=== PATIENT | female | born 1975 | race Hispanic/Latino ===

== ENCOUNTER 2017-08-17 21:19 | Emergency (ER) | payer OTHER, SELFPAY ==
[2017-08-17] MEDS ORDERED: predniSONE 20 MG TAB ONE (21:57)
[2017-08-17] MEDS ORDERED: NA CHLORIDE 0.9% 1,000 ML ONE (21:58)
[2017-08-17] MEDS ORDERED: DIPHENHYDRAMINE 50 MG/ML VIAL ONE (21:59)
[2017-08-17] MEDS ORDERED: FAMOTIDINE 20 MG/2 ML VIAL IV ONE (21:59)
[2017-08-17] MEDS ORDERED: METHYLPREDNISOLONE 125 MG INJ ONE (21:59)
[2017-08-17 22:16] LABS: Absolute Lymphocytes (CBC) 2.6 K/uL (0.7-4.9); Absolute Monocytes 0.6 K/uL (0.1-1.3); Absolute Neutrophil 6.9 K/uL (1.8-8.0); Basophils % 0.7 % (0-1.3); Eosinophils % 1.7 % (0-4.4); Hematocrit 36.1 % (36.0-45.0); Lymphocytes % 25.1 % (15.3-44.8); MCH 26.7 pg (27.0-35.0); MCV 82.5 fL (80-100); MPV 8.1 fL (7.6-11.3); RBC Red Blood Cell Count 4.37 M/uL (3.86-4.86)
[2017-08-17 22:20] LABS: Protime INR 0.97
[2017-08-17 22:25] LABS: Bicarbonate 26 mEq/L (21-31); Glucose Level 108 mg/dL (65-120); Lipase 19 U/L (22-51); Potassium 3.6 mEq/L (3.6-5.0); Sodium Level 138 mEq/L (135-145)
[2017-08-17 22:31] LABS: ALT/SGPT 38 IU/L (10-60); AST/SGOT 39 IU/L (10-42); Albumin 3.2 g/dL (3.2-5.5); Alkaline Phosphatase 88 IU/L (42-121); BUN Blood Urea Nitrogen 16 mg/dL (6-20); Bilirubin Direct < 0.1 mg/dL (0-0.2); Bilirubin Total 0.5 mg/dL (0.3-1.2); Creatine Phosphokinase 149 IU/L (22-269); Magnesium 1.7 mg/dL (1.8-2.5); Protein, Total 7.1 g/dL (6.0-8.3)
[2017-08-17 22:34] LABS: CKMB Creatine Kinase MB 3.3 ng/ml (0.3-4.0)
[2017-08-17] MEDS ORDERED: MAGNESIUM SULFATE 1 gm IVPB 1 GM/100 ML BAG IV ONE (23:00)
--- NOTE | 2017-08-17 23:01 | EDPHYS ---
Physician Documentation [facility] Name: Mariely Stratton Age: 42 yrs Sex: Female : 1975 Arrival Date: 08/17/2017 Time: 21:25 Bed 6 Private MD: ED Physician Ronen Simpson HPI: 08/17 21:50 This 42 yrs old Female presents to ER via Ambulatory with complaints of Rash, suresh Breathing Difficulty. 21:50 The patient's rash thought to be caused by an unknown cause. The rash is located on the suresh body diffusely. The rash can be described as erythematous, urticarial. Onset: The symptoms/episode began/occurred 1 day(s) ago. Associated signs and symptoms: Pertinent positives: None. Severity of symptoms: At their worst the symptoms were moderate in the emergency department the symptoms are unchanged. Treatment given at home: none. The patient has not experienced similar symptoms in the past. OFFICE REP: 21:30 LMP N/A - Recent aj Historical: - Allergies: 21:30 No Known Allergies; aj - Home Meds: 21:30 None [Active]; aj - PMHx: 21:30 None; aj - PSHx: 21:30 None; aj - Immunization history:: Adult Immunizations up to date. - Social history:: Smoking status: Patient/guardian denies using tobacco. - Family history:: not pertinent. ROS: 21:50 Constitutional: Negative for fever, chills, and weight loss, Eyes: Negative for injury, suresh pain, redness, and discharge, ENT: Negative for injury, pain, and discharge, Neck: Negative for injury, pain, and swelling, Cardiovascular: Negative for chest pain, palpitations, and edema, Respiratory: Negative for shortness of breath, cough, wheezing, and pleuritic chest pain, Abdomen/GI: Negative for abdominal pain, nausea, vomiting, diarrhea, and constipation, Back: Negative for injury and pain, : Negative for injury, bleeding, discharge, and swelling, MS/Extremity: Negative for injury and deformity, Neuro: Negative for headache, weakness, numbness, tingling, and seizure, Psych: Negative for depression, anxiety, suicide ideation, homicidal ideation, and hallucinations, Allergy/Immunology: Negative for hives, rash, and allergies, Endocrine: Negative for neck swelling, polydipsia, polyuria, polyphagia, and marked weight changes, Hematologic/Lymphatic: Negative for swollen nodes, abnormal bleeding, and unusual bruising. 21:50 Skin: Positive for rash, diffusely. Exam: 21:50 Constitutional: This is a well developed, well nourished patient who is awake, alert, suresh and in no acute distress. Head/Face: Normocephalic, atraumatic. Eyes: Pupils equal round and reactive to light, extra-ocular motions intact. Lids and lashes normal. Conjunctiva and sclera are non-icteric and not injected. Cornea within normal limits. Periorbital areas with no swelling, redness, or edema. ENT: Nares patent. No nasal discharge, no septal abnormalities noted. Tympanic membranes are normal and external auditory canals are clear. Oropharynx with no redness, swelling, or masses, exudates, or evidence of obstruction, uvula midline. Mucous membranes moist. Neck: Trachea midline, no thyromegaly or masses palpated, and no cervical lymphadenopathy. Supple, full range of motion without nuchal rigidity, or vertebral point tenderness. No Meningismus. Chest/axilla: Normal chest wall appearance and motion. Nontender with no deformity. No lesions are appreciated. Cardiovascular: Regular rate and rhythm with a normal S1 and S2. No gallops, murmurs, or rubs. Normal PMI, no JVD. No pulse deficits. Respiratory: Lungs have equal breath sounds bilaterally, clear to auscultation and percussion. No rales, rhonchi or wheezes noted. No increased work of breathing, no retractions or nasal flaring. Abdomen/GI: Soft, non-tender, with normal bowel sounds. No distension or tympany. No guarding or rebound. No evidence of tenderness throughout. Back: No spinal tenderness. No costovertebral tenderness. Full range of motion. MS/ Extremity: Pulses equal, no cyanosis. Neurovascular intact. Full, normal range of motion. Neuro: Awake and alert, GCS 15, oriented to person, place, time, and situation. Cranial nerves II-XII grossly intact. Motor strength 5/5 in all extremities. Sensory grossly intact. Cerebellar exam normal. Normal gait. Psych: Awake, alert, with orientation to person, place and time. Behavior, mood, and affect are within normal limits. 21:50 Skin: Appearance: Color: normal in color, Temperature: normal temperature, Moisture: normal moisture, petechiae, not noted, ecchymosis, not noted, urticaria. 23:01 Musculoskeletal/extremity: Extremities: all appear grossly normal, with no appreciated suresh pain with palpation, ROM: full active range of motion, full passive range of motion, Circulation is intact in all extremities. Sensation intact. Compartment Syndrome exam of affected extremity: is normal. DVT Exam: No signs of deep vein thrombosis. no pain, no swelling, no tenderness, negative Homans' sign noted on exam, no appreciated bluish discoloration, no erythema, no increased warmth. 23:04 Chest/axilla: Inspection: normal, Palpation: is normal, no acute changes, Axilla: are suresh normal, no acute changes. 23:04 Cardiovascular: Rate: normal, Rhythm: regular, Pulses: Pulses are 4+ in bilateral radial, brachial, femoral, popliteal, posterior tibial and and dorsalis pedis arteries.. Heart sounds: normal, Edema: is not appreciated, JVD: is not appreciated. Vital Signs: 21:30 BP 138 / 83; Pulse 79; Resp 22; Temp 98.7; Pulse Ox 97% on R/A; Weight 122.47 kg; aj Height 5 ft. 3 in. (160.02 cm); Pain 0/10; 22:58 BP 142 / 80; Pulse 67; Resp 16; Pulse Ox 95% on R/A; Pain 0/10; tl1 08/18 00:11 BP 131 / 79; Pulse 65; Resp 16; Temp 98.6; Pulse Ox 96% on R/A; Pain 0/10; tl1 08/17 21:30 Body Mass Index 47.83 (122.47 kg, 160.02 cm) MDM: 08/17 21:46 Patient medically screened. [facility] 21:52 Data reviewed: vital signs, nurses notes, lab test result(s), EKG, radiologic studies, [facility] plain films. 08/17 21:50 Order name: Basic Metabolic Panel; Complete Time: 22:57 [facility] 08/17 21:50 Order name: BNP; Complete Time: 22:57 [facility] 08/17 21:50 Order name: CBC with Diff; Complete Time: 22:57 [facility] 08/17 21:50 Order name: Ckmb; Complete Time: 22:57 [facility] 08/17 21:50 Order name: CPK; Complete Time: 22:57 [facility] 08/17 21:50 Order name: LFT's; Complete Time: 22:57 [facility] 08/17 21:50 Order name: Magnesium; Complete Time: 22:57 [facility] 08/17 21:50 Order name: PT-INR; Complete Time: 22:57 [facility] 08/17 21:50 Order name: Ptt, Activated; Complete Time: 22:57 [facility] 08/17 21:50 Order name: Troponin (emerg Dept Use Only); Complete Time: 22:57 [facility] 08/17 21:50 Order name: Lipase; Complete Time: 22:57 [facility] 08/17 21:53 Order name: Urine Culture [facility] 08/17 23:42 Order name: Urine Dipstick--Ancillary (enter results) [facility] 08/17 23:42 Order name: Urine --Ancillary (enter results) [facility] 08/17 21:50 Order name: XRAY Chest (1 view) [facility] 08/17 21:50 Order name: EKG; Complete Time: 21:51 [facility] 08/17 21:50 Order name: Cardiac monitoring; Complete Time: 21:55 [facility] 08/17 21:50 Order name: EKG - Nurse/Tech; Complete Time: 22:18 [facility] 08/17 21:50 Order name: IV Saline Lock; Complete Time: 21:55 [facility] 08/17 21:50 Order name: Labs collected and sent; Complete Time: 21:55 [facility] 08/17 21:50 Order name: O2 Per Protocol; Complete Time: 21:56 [facility] 08/17 21:50 Order name: O2 Sat Monitoring; Complete Time: 21:56 [facility] 08/17 21:50 Order name: Urine Dipstick-Ancillary (obtain specimen); Complete Time: 23:40 [facility] Administered Medications: 22:09 Drug: SOLU-Medrol 125 mg Route: IVP; Infused Over: 2 mins; Site: right hand; 08/18 00:06 Follow up: Response: No adverse reaction; Marked relief of symptoms 08/17 22:09 Drug: predniSONE 60 mg Route: PO; 08/18 00:07 Follow up: Response: No adverse reaction; Marked relief of symptoms 08/17 22:10 Drug: NS 0.9% 1000 ml Route: IV; Rate: 125 ml/hr; Site: right hand; 1 08/18 00:06 Follow up: IV Status: Completed infusion tl1 08/17 22:10 Drug: Benadryl 50 mg Route: IVP; Infused Over: 3 mins; Site: right hand; tl1 08/18 00:06 Follow up: Response: No adverse reaction; Marked relief of symptoms tl1 08/17 22:10 Drug: Pepcid 20 mg Route: IVP; Infused Over: 2 mins; Site: right hand; tl1 08/18 00:06 Follow up: Response: No adverse reaction; Marked relief of symptoms 1 08/17 23:03 Drug: Magnesium Sulfate 1 grams Route: IVPB; Infused Over: 1 hrs; Site: right tl1 antecubital; 08/18 00:05 Follow up: IV Status: Completed infusion 1 Disposition: 08/17/17 23:00 Discharged to Home. Impression: Rash and other nonspecific skin eruption, Urticaria, Hypomagnesemia, Dyspnea. - Condition is Stable. - Discharge Instructions: Hives, Hypomagnesemia, Rash, Shortness of Breath, Shortness of Breath, Eeiq-[id number], Rash, Wvpn-et-[id number], Hives, Roef-ef-Grjv. - Prescriptions for Benadryl 25 mg Oral Capsule - take 1 capsule by ORAL route every 6 hours As needed; 30 tablet. Pepcid 20 mg Oral Tablet - take 1 tablet by ORAL route every 12 hours for 5 days; 20 tablet. Prednisone 20 mg Oral Tablet - take 2 tablet by ORAL route once daily for 5 days; 10 tablet. - Medication Reconciliation Form, Thank You Letter, Antibiotic Education, Prescription Opioid Use form. - Follow up: Private Physician; When: 2 - 3 days; Reason: Recheck today's complaints, Continuance of care, Re-evaluation by your physician. - Problem is new. - Symptoms have improved. Signatures: Dispatcher [employer] Stephie Manning RN RN aj Anderson, Corey, MD MD cha Lasagna, Tonya, RN RN tl1
--- NOTE | 2017-08-17 23:01 | ER ---
Nurse's Notes [facility] Name: Mariely Stratton Age: 42 yrs Sex: Female : 1975 Arrival Date: 08/17/2017 Time: 21:25 Bed 6 Private MD: Diagnosis: Rash and other nonspecific skin eruption;Urticaria;Hypomagnesemia;Dyspnea Presentation: 08/17 21:27 Presenting complaint: Patient states: Itchy rash all over that started yesterday. aj Patient reports taking Benadryl 25 mg at 1600 today. Patient reports "bumps" on tongue and throat. Recent 10 days ago. Transition of care: patient was not received from another setting of care. Onset of symptoms was August 16, 2017. Initial Sepsis Screen: Does the patient meet any 2 criteria? No. Patient's initial sepsis screen is negative. Does the patient have a suspected source of infection? No. Patient's initial sepsis screen is negative. Care prior to arrival: None. 21:27 Method Of Arrival: Ambulatory 21:27 Acuity: BETHANY 3 aj Triage Assessment: 21:30 General: Appears in no apparent distress. uncomfortable, Behavior is calm, cooperative, aj appropriate for age. Pain: Denies pain. EENT: Reports pain when swallowing. Neuro: Level of Consciousness is awake, alert, obeys commands, Oriented to person, place, time, situation. Respiratory: Reports shortness of breath Airway is patent Respiratory effort is even, unlabored, Respiratory pattern is regular, symmetrical, Onset: The symptoms/episode began/occurred gradually, the patient has mild shortness of breath. Derm: Skin is intact, is healthy with good turgor, Skin is pink, warm \\T\\ dry. normal, Rash noted that is itchy, red, on face, chest, abdomen, right arm, left arm, right leg and left leg. 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 - Social history:: Smoking status: Patient/guardian denies using tobacco. - Family history:: not pertinent. Screenin/21 00:08 Abuse screen: Denies threats or abuse. Denies injuries from another. Nutritional tl1 screening: No deficits noted. Tuberculosis screening: No symptoms or risk factors identified. Fall Risk IV access (20 points). Assessment: 08/17 21:44 General: Appears in no apparent distress. Behavior is calm, cooperative, appropriate tl1 for age. Pain: Denies pain. Neuro: Level of Consciousness is awake, alert, Oriented to person, place, time, situation. 21:45 Cardiovascular: Denies chest pain, Rhythm is regular. Respiratory: Airway is patent tl1 Trachea midline Respiratory effort is even, unlabored, Breath sounds are clear bilaterally. GI: Abdomen is non-distended, Bowel sounds present X 4 quads. Abd is soft and non tender X 4 quads. : Reports vaginal bleeding that is moderate flow, Patient gave approx 10 days [employer]. EENT: Reports bumps on tongue and throat. Derm: Rash noted that is itchy, red, raised, urticaria. 23:04 Reassessment: Patient and/or family updated on plan of care and expected duration. Pain tl1 level reassessed. Patient is alert, oriented x 3, equal unlabored respirations, skin warm/dry/pink. Patient denies pain at this time. Patient states feeling better. Patient states symptoms have improved. 08/18 00:07 Reassessment: Patient and/or family updated on plan of care and expected duration. Pain tl1 level reassessed. Patient is alert, oriented x 3, equal unlabored respirations, skin warm/dry/pink. Patient denies pain at this time. Patient states feeling better. Patient states symptoms have improved. Respiratory: Airway is patent Trachea midline Respiratory effort is even, unlabored. Vital Signs: 08/17 21:30 BP 138 / 83; Pulse 79; Resp 22; Temp 98.7; Pulse Ox 97% on R/A; Weight 122.47 kg; aj Height 5 ft. 3 in. (160.02 cm); Pain 0/10; 22:58 BP 142 / 80; Pulse 67; Resp 16; Pulse Ox 95% on R/A; Pain 0/10; tl1 08/18 00:11 BP 131 / 79; Pulse 65; Resp 16; Temp 98.6; Pulse Ox 96% on R/A; Pain 0/10; tl1 08/17 21:30 Body Mass Index 47.83 (122.47 kg, 160.02 cm) aj ED Course: 08/17 21:25 Patient arrived in ED. al2 21:29 Triage completed. aj 21:30 Arm band placed on right wrist. Patient placed in an exam room. aj 21:30 Patient has correct armband on for positive identification. Bed in low position. Call tl1 light in reach. Side rails up X 1. 21:43 Inserted saline lock: 22 gauge in right hand, using aseptic technique. Blood collected. tl2 21:44 Nano Elizondo, GAMALIEL is Primary Nurse. tl1 21:45 Ronen Simpson MD is Attending Physician. suresh 22:15 X-ray completed. Portable x-ray completed in exam room. Patient tolerated procedure kp1 well. 22:17 XRAY Chest (1 view) In Process Unspecified. EDMS 22:27 EKG done, by ED staff, reviewed by Ronen Simpson MD. cb2 23:43 Urine collected: clean catch specimen, clear. cb2 08/18 00:09 No provider procedures requiring assistance completed. IV discontinued, intact, tl1 bleeding controlled, No redness/swelling at site. Pressure dressing applied. Administered Medications: 08/17 22:09 Drug: SOLU-Medrol 125 mg Route: IVP; Infused Over: 2 mins; Site: right hand; tl1 08/18 00:06 Follow up: Response: No adverse reaction; Marked relief of symptoms tl1 08/17 22:09 Drug: predniSONE 60 mg Route: PO; tl1 08/18 00:07 Follow up: Response: No adverse reaction; Marked relief of symptoms tl1 08/17 22:10 Drug: NS 0.9% 1000 ml Route: IV; Rate: 125 ml/hr; Site: right hand; tl1 08/18 00:06 Follow up: IV Status: Completed infusion tl1 08/17 22:10 Drug: Benadryl 50 mg Route: IVP; Infused Over: 3 mins; Site: right hand; tl1 08/18 00:06 Follow up: Response: No adverse reaction; Marked relief of symptoms tl1 08/17 22:10 Drug: Pepcid 20 mg Route: IVP; Infused Over: 2 mins; Site: right hand; tl1 08/18 00:06 Follow up: Response: No adverse reaction; Marked relief of symptoms tl1 08/17 23:03 Drug: Magnesium Sulfate 1 grams Route: IVPB; Infused Over: 1 hrs; Site: right tl1 antecubital; 08/18 00:05 Follow up: IV Status: Completed infusion tl1 Outcome: 08/17 23:00 Discharge ordered by . suresh 08/18 00:07 Discharged to home ambulatory, with family. tl1 Condition: good Discharge instructions given to patient, family, Instructed on discharge instructions, follow up and referral plans. medication usage, Demonstrated understanding of instructions, follow-up care, medications, Prescriptions given X 3. 00:12 Patient left the ED. tl1 Signatures: Dispatcher [employer] EDMS Stephie Reyes RN RN aj Anderson, Corey, MD MD cha Lasagna, Tonya, RN RN tl1 Sherine Tenorio RN RN tl2 Dwihgt Wang Kathy 1 Laurie Charles2
[2017-08-17 23:53] LABS: Urine Blood 3+ (NEG); Urine Glucose NEGATIVE (NEG); Urine Protein NEGATIVE (NEG); Urine pH 5.5 (5.0-7.0)
--- NOTE | 2017-08-18 07:15 | EKG ---
Test Date: 2017-08-17 Test Time: 22:22:50 Screening Technician: JOSELITO MEASUREMENT RESULTS: Intervals: Rate: 69 MI: 148 QRSD: 74 QT: 418 QTc: 447 [place]: P: 61 MI: 148 QRS: 22 T: 48 INTERPRETIVE STATEMENTS: Normal sinus rhythm Normal ECG No previous ECG available for comparison Electronically Signed On 08-18-17 07:14:51 CDT by Venkatesh Ferreira
--- NOTE | 2017-08-18 08:30 | RAD REPORT ---
EXAM DESCRIPTION: Kevin Single View08/17/2017 10:18 pm CLINICAL HISTORY: Shortness of breath COMPARISON: none FINDINGS: The lungs appear grossly clear. The heart is normal size IMPRESSION: No acute abnormalities displayed
== END 2017-08-18 00:12 | disposition home or self-care (01) ==
LOC: ER 21:19
DX: L50.9 Urticaria, unspecified (principal); R06.00 Dyspnea, unspecified; E83.42 Hypomagnesemia
CPT/HCPCS: 36415; 71045; 80048; 80076; 81003; 81025; 82550; 82553; 83690; 83735; 83880; 84484; 85025; 85610; 85730; 87086; 87088; 93005; 96361; 96365; 96375; 99284; J2930; J3475; J7030; J7512

== ENCOUNTER 2017-08-22 08:57 | Emergency (ER) | payer OTHER, SELFPAY ==
[2017-08-22] MEDS ORDERED: DIPHENHYDRAMINE 25 MG TAB/CAP ONE (09:29)
[2017-08-22] MEDS ORDERED: LIDOCAINE 1% MPF 5 ML VIAL ONE (09:29)
--- NOTE | 2017-08-22 10:32 | ER ---
Nurse's Notes [facility] Name: Mariely Stratton Age: 42 yrs Sex: Female : 1975 Arrival Date: 08/22/2017 Time: 08:59 Bed 14 Private MD: Diagnosis: Urticaria;Cutaneous abscess of abdominal wall Presentation: 08/22 09:19 Presenting complaint: Patient states: Continued rash from Sunday, meds haven't jl7 helped. Now there's an abscess to left upper abdomen. Transition of care: patient was not received from another setting of care. Onset of symptoms was August 18, 2017. Initial Sepsis Screen: Does the patient meet any 2 criteria? No. Patient's initial sepsis screen is negative. Does the patient have a suspected source of infection? No. Patient's initial sepsis screen is negative. Care prior to arrival: None. 09:19 Method Of Arrival: Ambulatory jl7 09:19 Acuity: BETHANY 4 jl7 Historical: - Allergies: 09:23 No Known Allergies; jl7 - Home Meds: 09:23 None [Active]; jl7 - PMHx: 09:23 None; jl7 - PSHx: 09:23 None; jl7 - Immunization history:: Adult Immunizations unknown. - Social history:: Smoking status: unknown. Screenin:30 Abuse screen: Denies threats or abuse. Denies injuries from another. Nutritional jl7 screening: No deficits noted. Tuberculosis screening: No symptoms or risk factors identified. Fall Risk None identified. Assessment: 09:30 General: Appears in no apparent distress. Pain: Complains of pain in abdomen. Neuro: jl7 Level of Consciousness is awake, alert, obeys commands. Cardiovascular: Patient's skin is warm and dry. Respiratory: Airway is patent Respiratory effort is even, unlabored, Respiratory pattern is regular, symmetrical. Derm: Rash noted that is urticaria, on abdomen, right leg and left leg. Vital Signs: 09:23 BP 168 / 85; Pulse 72; Resp 16; Temp 98.3; Pulse Ox 97% ; Weight 102.06 kg; Height 5 jl7 ft. 3 in. (160.02 cm); 10:00 BP 164 / 76; Pulse 58; Resp 16; Pulse Ox 95% ; jl7 10:45 BP 167 / 84; Pulse 65; Resp 16 S; Pulse Ox 95% on R/A; jl7 09:23 Body Mass Index 39.86 (102.06 kg, 160.02 cm) jl7 ED Course: 08:59 Patient arrived in ED. as 09:11 Joi Ellis FNP-C [facility]. kb 09:11 Ricki Rincon MD is Attending Physician. kb 09:18 Cathy Archuleta, GAMALIEL is Primary Nurse. jl7 09:21 Triage completed. jl7 09:25 Arm band placed on right wrist. jl7 09:30 Patient has correct armband on for positive identification. Bed in low position. Call jl7 light in reach. Side rails up X 1. Pulse ox on. NIBP on. 11:00 No provider procedures requiring assistance completed. Patient did not have IV access jl7 during this emergency room visit. Administered Medications: 09:31 Drug: Benadryl 50 mg Route: PO; jl7 10:15 Follow up: Response: No adverse reaction; Marked relief of symptoms jl7 10:00 Drug: Lidocaine (1 %) 1 vials {Note: administered by NP. Caleb} Volume: 5 ml; Route: jl7 Infiltration; 10:40 Follow up: Response: No adverse reaction jl7 10:40 Drug: Bactrim (160 mg-800 mg (DS) 1 tablet Route: PO; jl7 10:56 Follow up: Response: Medication administered at discharge. jl7 10:40 Drug: Ibuprofen 800 mg Route: PO; jl7 10:57 Follow up: Response: Medication administered at discharge. jl7 Outcome: 10:32 Discharge ordered by . kb 11:00 Discharged to home ambulatory. jl7 11:00 Condition: stable 11:00 Discharge instructions given to patient, family, Instructed on discharge instructions, follow up and referral plans. medication usage, Demonstrated understanding of instructions, follow-up care, medications, Prescriptions given X 1. 11:01 Patient left the ED. jl7 Signatures: Joi Ellis FNP-C FNP-Lis Garcia as Cathy Archuleta, RN RN jl7
--- NOTE | 2017-08-22 10:33 | EDPHYS ---
Physician Documentation [facility] Name: Mariely Stratton Age: 42 yrs Sex: Female : 1975 Arrival Date: 08/22/2017 Time: 08:59 Bed 14 Private MD: ED Physician Ricki Rincon HPI: 08/22 09:24 This 42 yrs old Female presents to ER via Ambulatory with complaints of Rash. kb 09:24 The patient's rash thought to be caused by an unknown cause. The rash is located on the kb body diffusely. The rash can be described as urticarial. Onset: The symptoms/episode began/occurred 5 day(s) ago. Associated signs and symptoms: Pertinent positives: itching. Severity of symptoms: At their worst the symptoms were moderate in the emergency department the symptoms are unchanged. The patient has not experienced similar symptoms in the past. The patient has been recently seen at the [facility] Emergency Department, last week, for similar complaints labs were performed, X-rays were performed. Pt was seen for rash a few days ago and started on prednisone and pepcid. States the rash subsides throughout the day, but comes back at night. Has not been taking benadryl. Also reports abscess to LLQ that drains when she pushes on it. . Historical: - Allergies: 09:23 No Known Allergies; jl7 - Home Meds: 09:23 None [Active]; jl7 - PMHx: 09:23 None; jl7 - PSHx: 09:23 None; jl7 - Immunization history:: Adult Immunizations unknown. - Social history:: Smoking status: unknown. ROS: 09:21 Constitutional: Negative for fever, chills, and weight loss, Cardiovascular: Negative kb for chest pain, palpitations, and edema, Respiratory: Negative for shortness of breath, cough, wheezing, and pleuritic chest pain, Abdomen/GI: Negative for abdominal pain, nausea, vomiting, diarrhea, and constipation, MS/Extremity: Negative for injury and deformity, Neuro: Negative for headache, weakness, numbness, tingling, and seizure. 09:21 Skin: Positive for rash, diffusely. 09:23 Skin: Positive for abscess, erythema, swelling, of the left lower quadrant. kb Exam: 09:23 Constitutional: This is a well developed, well nourished patient who is awake, alert, kb and in no acute distress. Head/Face: Normocephalic, atraumatic. Chest/axilla: Normal chest wall appearance and motion. Nontender with no deformity. No lesions are appreciated. Cardiovascular: Regular rate and rhythm with a normal S1 and S2. No gallops, murmurs, or rubs. Normal PMI, no JVD. No pulse deficits. Respiratory: Lungs have equal breath sounds bilaterally, clear to auscultation and percussion. No rales, rhonchi or wheezes noted. No increased work of breathing, no retractions or nasal flaring. Abdomen/GI: Soft, non-tender, with normal bowel sounds. No distension or tympany. No guarding or rebound. No evidence of tenderness throughout. MS/ Extremity: Pulses equal, no cyanosis. Neurovascular intact. Full, normal range of motion. Neuro: Awake and alert, GCS 15, oriented to person, place, time, and situation. Cranial nerves II-XII grossly intact. Motor strength 5/5 in all extremities. Sensory grossly intact. Cerebellar exam normal. Normal gait. 09:23 Skin: abscess, that is small, of the left lower quadrant, with drainage, with fluctuance, with induration, with surrounding cellulitis, that is mild, consistent with urticaria. Vital Signs: 09:23 BP 168 / 85; Pulse 72; Resp 16; Temp 98.3; Pulse Ox 97% ; Weight 102.06 kg; Height 5 jl7 ft. 3 in. (160.02 cm); 10:00 BP 164 / 76; Pulse 58; Resp 16; Pulse Ox 95% ; jl7 10:45 BP 167 / 84; Pulse 65; Resp 16 S; Pulse Ox 95% on R/A; jl7 09:23 Body Mass Index 39.86 (102.06 kg, 160.02 cm) 7 Procedures: 10:22 I \T\ D: Incision and drainage was performed for an abscess of the left left lower kb quadrant Prepped with alcohol, Anesthetized with 2 ml's 1% Lidocaine. Incised with #11 blade. Drained small amount serosanguinous fluid. Dressing: sterile 4x4 gauze, the patient tolerated the procedure well. MDM: 09:11 Patient medically screened. 09:21 Data reviewed: vital signs, nurses notes. Data interpreted: Pulse oximetry: on room air kb is 96 %. Interpretation: normal. 10:22 Counseling: I had a detailed discussion with the patient and/or guardian regarding: the kb historical points, exam findings, and any diagnostic results supporting the discharge/admit diagnosis, the need for outpatient follow up, an allergy/outcomes specialist, a family practitioner, a general surgeon, to return to the emergency department if symptoms worsen or persist or if there are any questions or concerns that arise at home. 08/22 09:19 Order name: I\T\D Setup; Complete Time: :31 kb Administered Medications: : Drug: Benadryl 50 mg Route: PO; jl7 10:15 Follow up: Response: No adverse reaction; Marked relief of symptoms jl7 10:00 Drug: Lidocaine (1 %) 1 vials {Note: administered by NP. Caleb} Volume: 5 ml; Route: jl7 Infiltration; 10:40 Follow up: Response: No adverse reaction jl7 10:40 Drug: Bactrim (160 mg-800 mg (DS) 1 tablet Route: PO; jl7 10:56 Follow up: Response: Medication administered at discharge. jl7 10:40 Drug: Ibuprofen 800 mg Route: PO; jl7 10:57 Follow up: Response: Medication administered at discharge. jl7 Disposition: 16:36 Co-signature as Attending Physician, Ricki Rincon MD. rn Disposition: 08/22/17 10:32 Discharged to Home. Impression: Urticaria, Cutaneous abscess of abdominal wall. - Condition is Stable. - Discharge Instructions: Abscess, [id number], Hives, [id number]. - Prescriptions for Bactrim DS 800- 160 mg Oral Tablet - take 1 tablet by ORAL route every 12 hours for 7 days; 14 tablet. - Medication Reconciliation Form, Thank You Letter, Antibiotic Education, Prescription Opioid Use form. - Follow up: Emergency Department; When: As needed; Reason: Worsening of condition. Follow up: Private Physician; When: 2 - 3 days; Reason: Recheck today's complaints, Continuance of care, Re-evaluation by your physician. Signatures: Joi Ellis, [employer] NABIL-Ricki Adam MD MD rn Smirch, Shelby, RN RN ss Leal, Jahala, RN RN jl7 Corrections: (The following items were deleted from the chart) 09:21 09:21 Data interpreted: Pulse oximetry: on room air is 100 %. Interpretation: normal. kbkb 09:26 09:24 The patient has been recently seen at the [facility] Emergency Department, last week, for similar complaints kb
[2017-08-22] MEDS ORDERED: IBUPROFEN 400 MG TAB ONE (10:39)
[2017-08-22] MEDS ORDERED: SMZ./TMP. 800/160 MG TABLET ONE (10:39)
== END 2017-08-22 11:01 | disposition home or self-care (01) ==
LOC: ER 08:57
PROC: 0H97XZZ Drainage of Abdomen Skin, External Approach (ICD-10-PCS; principal; 2017-08-22)
DX: L02.211 Cutaneous abscess of abdominal wall (principal); L50.9 Urticaria, unspecified
CPT/HCPCS: 99283